=== PATIENT | male | born 1995 | race Caucasian/White ===

== ENCOUNTER 2019-05-06 20:38 | Emergency (ER) | payer OTHER ==
[2019-05-06] MEDS ORDERED: Albuterol HFA INHALER* 8 gm MDI INH ONE (20:46)
--- NOTE | 2019-05-06 20:54 | ED ---
Asthma - HPI Summary HPI Summary: The patient is a 23 y/o male presenting to [facility] with a chief complaint of medication refill for Albuterol inhaler tonight. He reports that he had an asthma attack tonight and used the inhaler he had, which is running out, but it only felt like it worked slightly at first, but it did work after a while. He has been taking it as needed, but he states that he has needed to take it daily. He is concerned for an asthma attack tonight if he doesnt have the inhaler. He denies any SOB or wheezing now. He notes that eczema has been flaring up as well with flaky skin on the body. He notes that he used Flovent in the past. No other PMHx. FHx: seasonal allergies, no asthma. Nonsmoker, occasional EtOH, marijuana use. Medications reviewed. Allergies noted. - History of Current Complaint Chief Complaint: EDMedicationRefill Stated Complaint: MEDICATION NEEDED PER PT Time Seen by Provider: 05/06/19 20:45 Hx Obtained From: Patient Onset/Duration: Sudden Onset Initial Severity: Moderate Current Severity: Mild Pain Intensity: 0 Pain Scale Used: 0-10 Numeric Aggravating Symptoms: Other: - not having inhaler Alleviating Symptoms: Inhalers/Nebulizers Associated Signs and Symptoms: Positive: Other - eczema flare up. Negative: Shortness of Breath - Allergy/Home Medications Allergies/Adverse Reactions: Allergies Allergy/AdvReac Type Severity Reaction Status Date / Time egg Allergy Swelling Verified 05/06/19 20:43 Of Face,Lips,& Throat Fish Containing Products Allergy Anaphylatic Verified 05/06/19 20:43 Shock Milk Containing Products Allergy Anaphylatic Verified 05/06/19 20:43 Shock sesame seed Allergy Anaphylatic Verified 05/06/19 20:43 Shock Tree Nuts Allergy Anaphylatic Verified 05/06/19 20:43 Shock PMH/Surg Hx/FS Hx/Imm Hx Endocrine/Hematology History: Denies: Hx Diabetes Respiratory History: Reports: Hx Asthma Sensory History: Reports: Hx Contacts or Glasses Opthamlomology History: Reports: Hx Contacts or Glasses - Surgical History Surgical History: None Surgery Procedure, Year, and Place: none Infectious Disease History: No Infectious Disease History: Denies: Traveled Outside the [place] in Last 30 Days - Social History Alcohol Use: None Hx Substance Use: No Substance Use Type: Reports: None Hx Tobacco Use: No Smoking Status (MU): Never Smoked Tobacco Review of Systems Negative: Fever Negative: Shortness Of Breath, Other - wheezing Positive: Other - eczema All Other Systems Reviewed And Are Negative: Yes Physical Exam - Summary Physical Exam Summary: Constitutional: Well-developed, Well-nourished, Alert. (-) Distressed Skin: Warm, Dry, Dry and flaky skin to the abdomen and face HENT: Normocephalic; Atraumatic Eyes: Conjunctiva normal Neck: Musculoskeletal ROM normal neck. (-) JVD, (-) Stridor, (-) Nuchal rigidity Cardio: Rhythm regular, rate normal, Heart sounds normal; Intact distal pulses; Radial pulses are 2+ and symmetric. (-) Murmur Pulmonary/Chest wall: Effort normal. (-) Respiratory distress, (-) Wheezes, (-) Rales Abd: Soft, (-) tenderness, (-) Distension, (-) Guarding, (-) Rebound Musculoskeletal: (-) Edema Lymph: (-) Cervical adenopathy Neuro: Alert, Oriented x3 Psych: Mood and affect Normal Triage Information Reviewed: Yes Vital Signs On Initial Exam: Initial Vitals Temp Pulse Resp BP Pulse Ox 98.3 F 87 16 139/88 98 05/06/19 20:40 05/06/19 20:40 05/06/19 20:40 05/06/19 20:40 05/06/19 20:40 Vital Signs Reviewed: Yes Procedures - Sedation Patient Received Moderate/Deep Sedation with Procedure: No Diagnostics - Vital Signs Vital Signs Temp Pulse Resp BP Pulse Ox 05/06/19 20:40 98.3 F 87 16 139/88 98 - Laboratory Lab Statement: Any lab studies that have been ordered have been reviewed, and results considered in the medical decision making process. Asthma Course/Dx - Course Course Of Treatment: 23 y/o male p/w asthma. - patient has been using albuterol daily for more than one month. Advised patient he needs inhaled steroid, prescribed Flovent 100 Diskus twice a day. Also given short steroid burst prednisone for asthma exacerbation. - easy WOB on exam here, given one puff albuterol. - Diagnoses Provider Diagnoses: Medication refill, Asthma, Eczema Discharge ED - Sign-Out/Discharge Documenting (check all that apply): Patient Departure - Patient will be discharged home. - Discharge Plan Condition: Stable Disposition: HOME Prescriptions: Albuterol HFA INHALER* [Ventolin HFA Inhaler*] 2 puff INH Q4H PRN 30 Days #1 mdi PRN Reason: Wheezing Fluticasone DISKUS 100 MCG(NF) [Flovent Diskus 100 MCG(NF)] 1 puff INH BID 30 Days #1 diskus predniSONE 50 mg TAB [Deltasone 50 mg TAB] 50 mg PO DAILY 4 Days #4 tab Patient Education Materials: Asthma (ED), Eczema (ED) Referrals: Meagan Hurt MD [Medical Doctor] - 3 Days Care [facility] [Outside] - 3 Days Additional Instructions: You were seen in the emergency department for medication refill for your inhaler. Please take albuterol as needed every 4 hours for wheezing. Take Flovent twice a day. Please take prednisone for 5 days total Please follow up with your primary care doctor in next 2-3 days and return to emergency department for trouble breathing, worsening or concerning symptoms. It was a pleasure taking care of you today. - Billing Disposition and Condition Condition: STABLE Disposition: Home - Attestation Statements Document Initiated by Gonzaloiblinda: Yes Documenting Scribe: Gena Mayes Provider For Whom Frances is Documenting (Include Credential): Dr. Coleen Torrez MD Scribe Attestation: Gena Pike scribed for Dr. Coleen Torrez MD on 05/06/19 at 2142. Scribe Documentation Reviewed: Yes Provider Attestation: The documentation as recorded by the Gena sorto accurately reflects the service I personally performed and the decisions made by me, Dr. Coleen Torrez MD Status of Scriblinda Document: Viewed
[2019-05-06 21:22] VITALS: BP 129/84
== END 2019-05-06 21:21 | disposition home or self-care (01) ==
LOC: ED 20:38
DX: J45.909 Unspecified asthma, uncomplicated (principal); L30.9 Dermatitis, unspecified; Z79.899 Other long term (current) drug therapy
CPT/HCPCS: 99282; A9270-GY; J7512